=== PATIENT | male | born 1955 | race Caucasian/White ===

== ENCOUNTER → 2017-02-05 | Outpatient (CLI) | payer BC ==
--- NOTE | 2017-02-05 12:57 | DIAGNOSTIC IMAGING REPORT ---
KUB CLINICAL HISTORY: N20.0 NephrolithiasisRAD COMPARISON STUDY: 08/26/2015 FINDINGS: There is no pathologic bowel dilatation. There are surgical clips in the right upper quadrant consistent with a prior cholecystectomy. There is a mild lumbar spinal curvature convex to the right. There are multilevel degenerative changes within the lumbar spine. There are no calcifications suspicious for renal or ureteral calculi. IMPRESSION: No urinary tract calculi are visualized on conventional radiographic imaging Electronically signed by: Qamar Rodriguez M.D. 02/05/2017 12:55 PM Dictated Date/Time: 02/05/2017 12:55 PM
== END | disposition home or self-care (01) ==
LOC: C.RAD 12:10
PROVIDERS: ATTEND Urology
DX: N40.1 Benign prostatic hyperplasia with lower urinary tract symptoms (principal); N20.0 Calculus of kidney

== ENCOUNTER → 2017-11-06 | Outpatient (CLI) | payer BC ==
--- NOTE | 2017-11-06 08:59 | DIAGNOSTIC IMAGING REPORT ---
KUB HISTORY: Follow-up study in a patient with kidney stones N40.1 Benign localized hyperplasia of prostate with urinary obst COMPARISON: KUB 02/05/2017 FINDINGS: The bowel gas pattern is non-obstructive. Surgical clips project over the abdominal right upper quadrant. Moderate stool volume throughout the colon and rectum. There is no organomegaly. Renal shadows are partially obscured by bowel gas. There is a least one punctate radiodensity projecting over the bilateral renal shadows suspicious for possible nephrolithiasis or alternatively stool contents. No ureteral calculi identified. Calcifications of the pelvis are likely vascular in origin. No pneumoperitoneum or pneumatosis. No fracture. Degenerative changes about the spine with mild dextroscoliosis. IMPRESSION: 1. Questioned bilateral nephrolithiasis without ureteral calculi identified. 2. Probable constipation. 3. Nonobstructive bowel gas pattern. Electronically signed by: Bari Baker M.D. 11/06/2017 8:57 AM Dictated Date/Time: 11/06/2017 8:54 AM
== END | disposition home or self-care (01) ==
LOC: C.RAD 08:18
PROVIDERS: ATTEND Urology
DX: N35.9 Urethral stricture, unspecified (principal); N40.1 Benign prostatic hyperplasia with lower urinary tract symptoms; N20.0 Calculus of kidney